=== PATIENT | female | born 1950 | race Caucasian/White ===

== ENCOUNTER 2020-09-28 14:06 | Inpatient (IN) | payer MEDICARE, OTHER ==
[~2020-09-28] VITALS: Ht 157.5 cm; Wt 72.0 kg
[2020-09-28 14:41] LABS: BASOPHILS ABSOLUTE AUTO 0.09 K/mm3 (0.00-0.23); BASOPHILS PERCENT AUTO 1 % (0-2); EOSINOPHILS ABSOLUTE AUTO 0.22 K/mm3 (0.00-0.68); EOSINOPHILS PERCENT AUTO 2 % (0-6); Hematocrit 42.3 % (33.0-51.0); Hemoglobin 13.9 g/dL (11.5-16.0); IMMATURE GRAN ABSOLUTE AUTO 0.03 K/mm3 (0.00-0.10); IMMATURE GRAN PERCENT AUTO 0 % (0-1); LYMPHOCYTES ABSOLUTE AUTO 2.67 K/mm3 (0.84-5.20); LYMPHOCYTES PERCENT AUTO 28 % (21-46); MONOCYTES ABSOLUTE AUTO 0.58 K/mm3 (0.16-1.47); MONOCYTES PERCENT AUTO 6 % (4-13); Mean Corpuscular HGB 26.8 pg (26.0-34.0); Mean Corpuscular HGB Conc 32.9 g/dL (31.5-36.5); Mean Corpuscular Volume 82 fL (80-100); Mean Platelet Volume 9.9 fL (9.1-12.4); NEUTROPHILS ABSOLUTE AUTO 5.87 K/mm3 (1.96-9.15); NEUTROPHILS PERCENT AUTO 62 % (41-73); Platelet Count 365 K/mm3 (150-400); RDW Coefficient Variation 13.3 % (11.7-14.2); RDW Standard Deviation 39.6 fL (35.1-46.3); Red Blood Cell Count 5.18 M/mm3 (3.80-5.20); White Blood Cell Count 9.46 K/mm3 (4.00-11.30)
[2020-09-28 15:00] LABS: International Normalized Ratio 0.95; Prothrombin Time Results 10.3 Sec (9.7-11.5)
[2020-09-28 15:01] LABS: Alanine Aminotransfer (ALT/SGP 48 U/L (12-78); Albumin/Globulin Ratio 1.2 (0.8-1.8); Alk Phos 113 U/L (50-136); Anion Gap 8 mmol/L (6-16); Aspartate Aminotrans (AST/SGOT 32 U/L (12-37); Bilirubin, Total 0.8 mg/dL (0.1-1.0); Blood Urea Nitrogen 17 mg/dL (8-24); Bun/Creatinine Ratio 22.3 (12.0-20.0); CO2, Blood 24 mmol/L (21-32); Calcium, Blood 8.7 mg/dL (8.5-10.1); Chloride, Blood 104 mmol/L (98-108); Creatinine, Blood 0.76 mg/dL (0.40-1.00); Globulin, Blood 3.3 g/dL (2.2-4.0); Glomerular Filtration Rate >60 (60-); Glucose, Blood 98 mg/dL (70-99); Potassium, Blood 3.5 mmol/L (3.5-5.5); Sodium, Blood 136 mmol/L (136-145); Total Protein, Blood 7.3 g/dL (6.4-8.2)
--- NOTE | 2020-09-28 23:10 | NUR ---
ASSUMED CARE PT IS ALERT AND ORIENTED. ABLE TO COMMUNICATE NEEDS. NEUROS INTACT AND NO WORD SALAD/SLURRED SPEECH NOTED. PT ABLE TO AMBULATE TO BARTHROOM WITH SBA. WILL CONTINUE TO MONITOR.
[2020-09-29 04:11] LABS: BASOPHILS ABSOLUTE AUTO 0.06 K/mm3 (0.00-0.23); BASOPHILS PERCENT AUTO 1 % (0-2); EOSINOPHILS ABSOLUTE AUTO 0.15 K/mm3 (0.00-0.68); EOSINOPHILS PERCENT AUTO 2 % (0-6); Hematocrit 38.2 % (33.0-51.0); Hemoglobin 12.4 g/dL (11.5-16.0); IMMATURE GRAN ABSOLUTE AUTO 0.03 K/mm3 (0.00-0.10); IMMATURE GRAN PERCENT AUTO 0 % (0-1); LYMPHOCYTES ABSOLUTE AUTO 2.07 K/mm3 (0.84-5.20); LYMPHOCYTES PERCENT AUTO 24 % (21-46); MONOCYTES ABSOLUTE AUTO 0.71 K/mm3 (0.16-1.47); MONOCYTES PERCENT AUTO 8 % (4-13); Mean Corpuscular HGB 26.8 pg (26.0-34.0); Mean Corpuscular HGB Conc 32.5 g/dL (31.5-36.5); Mean Corpuscular Volume 83 fL (80-100); Mean Platelet Volume 10.3 fL (9.1-12.4); NEUTROPHILS ABSOLUTE AUTO 5.68 K/mm3 (1.96-9.15); NEUTROPHILS PERCENT AUTO 65 % (41-73); Platelet Count 338 K/mm3 (150-400); RDW Coefficient Variation 13.7 % (11.7-14.2); RDW Standard Deviation 40.9 fL (35.1-46.3); Red Blood Cell Count 4.63 M/mm3 (3.80-5.20)
[2020-09-29 04:32] LABS: Anion Gap 6 mmol/L (6-16); Blood Urea Nitrogen 17 mg/dL (8-24); Bun/Creatinine Ratio 23.4 (12.0-20.0); CHOL/HDL RATIO 3.6; CO2, Blood 27 mmol/L (21-32); Calcium, Blood 8.5 mg/dL (8.5-10.1); Chloride, Blood 104 mmol/L (98-108); Cholesterol 203 mg/dL (50-200); Creatinine, Blood 0.73 mg/dL (0.40-1.00); Glomerular Filtration Rate >60 (60-); Glucose, Blood 100 mg/dL (70-99); HDL Cholesterol 56 mg/dL (>39); LDL/HDL RATIO 2.2; Low Density Lipoprotein Chol 123 mg/dL (0-110); Potassium, Blood 3.9 mmol/L (3.5-5.5); Sodium, Blood 137 mmol/L (136-145); Triglycerides 118 mg/dL (30-160); Very Low Density Lipoprot Chol 23 mg/dL (6-32)
--- NOTE | 2020-09-29 05:01 | NUR ---
SHIFT SUMMARY PT IS ALERT AND ORIENTED. VITALS ARE STABLE WITH NO ACUTE CHANGES. PT IS ON ROOM AIR. NEUROS INTACT WITH NO HEADACHE NO SLURRED SPEECH/WORD SALAD NOTED. PT STATED THAT SYMPTOMS RESOLVED WHILE IN ED. PT IS UP TO THE BATHROOM WITH SBA AND GAIT IS STEADY. PT DENIES SOB AND CHEST PAIN. PT USES CALL LIGHT APPROPRIETLY AND FOLLOWS DIRECTIONS. CALL LIGHT WITHIN REACH.
--- NOTE | 2020-09-29 08:58 | NUR ---
ECHOCRDIOGRAM COMPLETED
--- NOTE | 2020-09-29 13:02 | NUR ---
Spiritual care visit conducted. Patient is sitting up in bed and alert. Patient tells me about the events that led to her hospitalization and what medical concerns are being addressed today. She talks about her nondenomenational beliefs that include many different relegions. Patient considers herself to be very spiritual and says that she has no spiritual needs at this time. She states that she is at peace with where things may head medically as she trusts in the "other worldliness" for the events in her life. Spiritual care will continue to remain available to patient and family.
--- NOTE | 2020-09-29 18:24 | NUR ---
SHIFT SUMMARY PATIENT IS ALERT AND ORIENTED, ABLE TO AMBULATE INDEPDENTLY IN ROOM. NEURO CHECKS DONE Q4, INTACT AND NO CHANGES NOTED THROUGH SHIFT. PATIENT'S BLOOD PRESSURE REMAINED ELEVATED T/O SHIFT, DR. KAUFMAN NOTIFIED AND ORDERS FOR COZAAR NOW GIVEN AND TO CHANGE COZAAR FROM DAILY TO BID TO START TOMORROW. PATIENT IS ABLE TO AMBULATE INDEPENDENTLY TO BATHROOM WITH STEADY GAIT. PATIENT DENIES CHEST PAIN/PRESSURE. NO SIGHS OF ACUTE DISTRESS, CALL LIGHT WITHIN REACH.
--- NOTE | 2020-09-29 22:13 | NUR ---
PT IS ALERT AND ORIENTED. 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 SHE STS THAT SHE HAD BEEN MANAGING BP'S AT HOME WITH EXERCISE UP UNTIL A FEW MONTHS AGO. DURING EVENING VITALS SHE ATTEMPTED TO DO MEDITATION AND WALKING THE GO TO HELP. BP'S WERE TAKEN SEVERAL TIMES WITH SOME DIFFERENCE. BP RECORDED.
--- NOTE | 2020-09-30 03:53 | NUR ---
PT WOULD LIKE TO WAIT ON BP MEDICATION FOR SBP OF >160. REQUESTED TO BE RECHECKED IN ONE HOUR.
--- NOTE | 2020-09-30 06:26 | NUR ---
SHIFT SUMMARY PT IS A/O X4. PT HAS HAD ELEVATED BP'S SHE HAS BEEN WANTING TO DO RELAXATION TO DECREASE THE BP. THERE HAVE BEEN NO ACUTE CHANGES WITH PT. DENIES CHEST PAIN OR SOB. SHE HAS BEEN UP AD PRASHANTH IN ROOM TO THE BATHROOM. USING CALL LIGHT APPROPRIETLY.
[2020-09-30] MEDS ORDERED: ASPIR 8181 M1 PO (10:04)
[2020-09-30] MEDS ORDERED: HYDCHL12.5 PO (10:05)
[2020-09-30] MEDS ORDERED: LOSARTAN POTAS100 M1 PO (10:05)
--- NOTE | 2020-09-30 10:28 | NUR ---
PATIENT IS ALERT AND ORIENTED, INDEPENDENT IN ROOM. CLYDE CHEST PAIN/PRESSURE, DENIES HEADACHE. NEURO INTACT. PATIENT PROVIDED DISCHARGE INFO REGARDING FOLLOW UP PLANS, REASONS TO RETURN TO THE HOSPITAL, AND MEDICATION INFORMATION. PATIENT VERBALIZED UNDERSTANDING. NO SIGNS OF ACUTE DISTRESS, PATIENT TO LEAVE VIA PERSONAL VEHICLE.
== END 2020-09-30 10:39 | disposition home or self-care (01) | DRG 69 ==
LOC: ER 14:06 → PCU 14:07
PROVIDERS: Nurse Practitioner Acute Care; Physician Assistant; ADMIT Internal Medicine
DX: G45.9 Transient cerebral ischemic attack, unspecified (principal); R47.01 Aphasia; I16.0 Hypertensive urgency; I10 Essential (primary) hypertension; R01.1 Cardiac murmur, unspecified; Z90.49 Acquired absence of other specified parts of digestive tract; Z98.818 Other dental procedure status; Z90.721 Acquired absence of ovaries, unilateral
CPT/HCPCS: 36415; 70450; 70496; 70498; 70551; 80048; 80053; 80061; 83880; 84484; 85025; 85610; 93005; 93010; 93306; 96374; 96375; 96376; 99285-25; A9270; G0378; J0360; J1940; J2060; Q9967

== ENCOUNTER → 2020-11-21 | Outpatient (CLI) | payer MEDICARE, OTHER ==
[~2020-11-21] MED LIST: ASPIR 8181 M1 PO; HYDCHL12.5 PO; LOSARTAN POTAS100 M1 PO
[2020-11-22 09:12] LABS: Stool Occult Bld Immuno 1 Positive (NEGATIVE)
== END | disposition home or self-care (01) ==
LOC: LAB SHORT 14:35 → LAB 14:35
PROVIDERS: Family Medicine
DX: Z12.11 Encounter for screening for malignant neoplasm of colon (principal)
CPT/HCPCS: G0328

== ENCOUNTER 2020-12-11 07:23 | Day surgery (SDC) | payer MEDICARE, OTHER ==
[~2020-12-11] VITALS: Ht 157.5 cm; Wt 69.1 kg
[2020-12-11] MEDS ORDERED: AMLO5 PO (08:14)
--- NOTE | 2020-12-11 08:21 | NUR ---
12/11/20 0821 Zahra Stanley PT TOOK SUTAB FOR PREP. RESULTS LT YELLOW.
--- NOTE | 2020-12-11 11:35 | NUR ---
12/11/20 1135 Zahra Stanley 3 ML ELEVIEW INJECTED FOR POLYP REMOVAL
== END 2020-12-11 11:20 | disposition home or self-care (01) ==
LOC: ORSCSDS 07:23
PROVIDERS: Surgery
PROC: 0DBN8ZX Excision of Sigmoid Colon, Via Natural or Artificial Opening Endoscopic, Diagnostic (ICD-10-PCS; principal; 2020-12-11 08:45)
PROC: 0DBH8ZX Excision of Cecum, Via Natural or Artificial Opening Endoscopic, Diagnostic (ICD-10-PCS; principal; 2020-12-11 08:45)
PROC: 3E0H8KZ Introduction of Other Diagnostic Substance into Lower GI, Via Natural or Artificial Opening Endoscopic (ICD-10-PCS; principal; 2020-12-11 08:45)
DX: R19.5 Other fecal abnormalities (principal); D12.0 Benign neoplasm of cecum; D12.5 Benign neoplasm of sigmoid colon; Z86.73 Personal history of transient ischemic attack (TIA), and cerebral infarction without residual deficits; E78.5 Hyperlipidemia, unspecified; I10 Essential (primary) hypertension; Z79.899 Other long term (current) drug therapy
CPT/HCPCS: 88305; J0461; J2405; J2704; J7120

== ENCOUNTER 2021-08-24 07:40 | Day surgery (SDC) | payer MEDICARE, OTHER ==
[~2021-08-24] VITALS: Ht 157.5 cm; Wt 72.4 kg
[~2021-08-24 07:40] MED LIST changes: +AMLO5 PO
[2021-08-24] MEDS ORDERED: CETI5 (07:56)
== END 2021-08-24 09:35 | disposition home or self-care (01) ==
LOC: ORSCSDS 07:40
PROVIDERS: Surgery
PROC: 0DBN8ZX Excision of Sigmoid Colon, Via Natural or Artificial Opening Endoscopic, Diagnostic (ICD-10-PCS; principal; 2021-08-24 09:00)
DX: D12.5 Benign neoplasm of sigmoid colon (principal); C18.7 Malignant neoplasm of sigmoid colon; I10 Essential (primary) hypertension; E78.5 Hyperlipidemia, unspecified; Z86.010 Personal history of colon polyps; Z79.899 Other long term (current) drug therapy
CPT/HCPCS: 88305; J2704; J7120

== ENCOUNTER 2024-12-26 11:01 | Day surgery (SDC) | payer MEDICARE, OTHER ==
[~2024-12-26] VITALS: Ht 157.5 cm; Wt 71.0 kg
[~2024-12-26 11:01] MED LIST changes: +Balanced Salt Epinephrine Irrigation Solution 500 mL IR SCH; +CETI5; +Moxifloxacin HCL 0.5 MG/0.1 ML 0.4MLSYR RIGHTEYE SCH; +Ondansetron 4 MG SoluTab MM PRN; +PHENYLEPHRINE\\TROPICAMIDE\\TETRACAINE OPHTHALMIC DILATING SOLN RIGHTEYE PRN; +Povidone-Iodine 450 DROP/30 ML Solution ONE; +Povidone-Iodine 450 DROP/30 ML Solution RIGHTEYE SCH; +Tetracaine HCl/Pf 0.5% Opth Soln 4 ml ONE; +Triamcinolone Inj Susp 40 MG / ML 1ML Vial INJ SCH; +Triamcinolone Inj Susp 40 MG / ML 1ML Vial ONE
--- NOTE | 2024-12-26 11:27 | NUR ---
12/26/24 Aubrie Lundberg INITIAL ANXIETY 08/16 PER PATIENT REPORT
[2024-12-26] MEDS ORDERED: [UNRECOGNIZED DRUG - OTHER] (11:39)
[2024-12-26] MEDS ORDERED: CALCIUM (11:39)
[2024-12-26] MEDS ORDERED: MAGNESIUM GLYCINATE (11:39)
[2024-12-26] MEDS ORDERED: Apple Cider Vi300 MG (11:40)
--- NOTE | 2024-12-26 12:17 | NUR ---
12/26/24 1217 Tiff Graham 1215 BP:150/80 HR:57 O2:98% RESP:16
[2024-12-26 12:36] VITALS: BP 153/82
== END 2024-12-26 12:43 | disposition home or self-care (01) ==
LOC: ORSCSDS 11:01
PROVIDERS: Ophthalmology
PROC: 08RJ3JZ Replacement of Right Lens with Synthetic Substitute, Percutaneous Approach (ICD-10-PCS; principal; 2024-12-26 12:30)
DX: E11.36 Type 2 diabetes mellitus with diabetic cataract (principal); H25.811 Combined forms of age-related cataract, right eye; E78.5 Hyperlipidemia, unspecified; I10 Essential (primary) hypertension; Z86.73 Personal history of transient ischemic attack (TIA), and cerebral infarction without residual deficits; Z79.899 Other long term (current) drug therapy
CPT/HCPCS: A9270; J3301; V2632

== ENCOUNTER 2025-01-10 09:16 | Day surgery (SDC) | payer MEDICARE, OTHER ==
[~2025-01-10] VITALS: Ht 157.5 cm; Wt 70.7 kg
[~2025-01-10 09:16] MED LIST changes: +Apple Cider Vi300 MG; +CALCIUM; +MAGNESIUM GLYCINATE; +Moxifloxacin HCL 0.5 MG/0.1 ML 0.4MLSYR LEFTEYE SCH; -Moxifloxacin HCL 0.5 MG/0.1 ML 0.4MLSYR RIGHTEYE SCH; +PHENYLEPHRINE\\TROPICAMIDE\\TETRACAINE OPHTHALMIC DILATING SOLN LEFTEYE PRN; -PHENYLEPHRINE\\TROPICAMIDE\\TETRACAINE OPHTHALMIC DILATING SOLN RIGHTEYE PRN; +Povidone-Iodine 450 DROP/30 ML Solution LEFTEYE SCH; -Povidone-Iodine 450 DROP/30 ML Solution RIGHTEYE SCH; +[UNRECOGNIZED DRUG - OTHER]
--- NOTE | 2025-01-10 10:05 | NUR ---
01/10/25 [id number] Aubrie Rosen 1004: INITIAL ANXIETY 07/16. 10 MG PO VALIUM GIVEN PER ORDERS. PULSE OX ON FINGER, CALL LIGHT IN HAND.
--- NOTE | 2025-01-10 10:57 | NUR ---
01/10/25 1057 Tiff Graham 1053 BP:133/74 HR:61 O2:100% RESP:16
[2025-01-10 11:21] VITALS: BP 140/73
--- NOTE | 2025-01-10 11:21 | NUR ---
01/10/25 1121 Gus Amaro PT INSTRUCTED TO MONITOR B/P AT HOME AND FOLLOW UP WITH PCP IF NEEDED. SHE STATES SDU VITALS CLOSER TO BASELINE THAN PRE-OP, WITHIN 20%.
== END 2025-01-10 11:18 | disposition home or self-care (01) ==
LOC: ORSCSDS 09:16
PROVIDERS: Ophthalmology
PROC: 08RK3JZ Replacement of Left Lens with Synthetic Substitute, Percutaneous Approach (ICD-10-PCS; principal; 2025-01-10 11:30)
DX: E11.36 Type 2 diabetes mellitus with diabetic cataract (principal); H25.812 Combined forms of age-related cataract, left eye; Z96.1 Presence of intraocular lens; I10 Essential (primary) hypertension; E78.5 Hyperlipidemia, unspecified; Z86.73 Personal history of transient ischemic attack (TIA), and cerebral infarction without residual deficits; Z79.899 Other long term (current) drug therapy
CPT/HCPCS: A9270; J3301; V2632